=== PATIENT | male | born 1975 | race Caucasian/White ===

== ENCOUNTER 2016-09-02 06:53 | Emergency (ER) | payer OTHER, SELFPAY ==
[~2016-09-02] VITALS: Ht 177.8 cm; Wt 60.3 kg
[2016-09-02] MEDS ORDERED: DEXAMETHASONE 4 MG/ML, 5ML ONE (07:15)
[2016-09-02 07:19] VITALS: BP_DIAS 89
[2016-09-02] MEDS ORDERED: IBUPROFEN 200 MG TABLET ONE (07:23)
[2016-09-02] MEDS ORDERED: IBUPROFEN 200 MG TABLET PO ONE (07:30)
[2016-09-02] MEDS ORDERED: DEXAMETHASONE 4 MG/ML, 1ML PO ONE (07:30)
[2016-09-02 07:47] VITALS: BP_SYST 131
== END 2016-09-02 07:51 | disposition home or self-care (01) ==
LOC: ED 07:45
DX: J02.8 Acute pharyngitis due to other specified organisms (principal)
CPT/HCPCS: 87081; 87880; 99284; J1100